=== PATIENT | female | born 1995 | race Caucasian/White ===

== ENCOUNTER 2021-09-27 03:42 | Emergency (ER) | payer SELFPAY ==
[~2021-09-27] VITALS: Ht 152.4 cm; Wt 65.8 kg
[2021-09-27 03:44] VITALS: BP 123/68
--- NOTE | 2021-09-27 03:44 | NUR ---
to bed ambulatory
[2021-09-27] MEDS ORDERED: MORPHINE SULFATE 2 MG/ML SYR IVP ONE (04:00)
[2021-09-27] MEDS ORDERED: NACL 0.9% 1,000 ML IV SCH (04:00)
[2021-09-27] MEDS ORDERED: ONDANSETRON 4 MG/2 ML VIAL IVP ONE (04:00)
[2021-09-27] MEDS ORDERED: PANTOPRAZOLE 40 MG INJ VIAL IVP ONE (04:05)
--- NOTE | 2021-09-27 04:18 | NUR ---
PT [facility]BS FOLLOWING TRIAGE
== END 2021-09-27 04:18 | disposition left against medical advice (07) ==
LOC: MED 03:42
DX: R10.13 Epigastric pain (principal); R11.2 Nausea with vomiting, unspecified; Z53.21 Procedure and treatment not carried out due to patient leaving prior to being seen by health care provider